=== PATIENT | male | born 1950 | race Caucasian/White ===

== ENCOUNTER → 2016-04-28 | Outpatient (CLI) | payer MEDICARE, OTHER | LOC: RAD 11:46 | DX: J20.8 Acute bronchitis due to other specified organisms (principal); R91.8 Other nonspecific abnormal finding of lung field; M46.84 Other specified inflammatory spondylopathies, thoracic region ==

== ENCOUNTER → 2016-05-02 | Outpatient (CLI) | payer MEDICARE, OTHER | LOC: LAB 10:28 | DX: J84.114 Acute interstitial pneumonitis (principal) ==

== ENCOUNTER → 2017-07-14 | Day surgery (SDC) | payer OTHER ==
[2014-05-31 20:30] VITALS: BP 170/68
== END ==
LOC: MSO 08:09
DX: Z12.11 Encounter for screening for malignant neoplasm of colon (principal); I10 Essential (primary) hypertension; E10.9 Type 1 diabetes mellitus without complications; Z79.4 Long term (current) use of insulin
CPT/HCPCS: G0121; 00812; J2704; J7030

== ENCOUNTER → 2018-06-09 | Outpatient (CLI) | payer MEDICARE, OTHER ==
[2014-05-31 20:30] VITALS: BP 170/68
== END ==
LOC: RAD 11:00
DX: M47.814 Spondylosis without myelopathy or radiculopathy, thoracic region (principal); R53.81 Other malaise; R09.89 Other specified symptoms and signs involving the circulatory and respiratory systems; R06.00 Dyspnea, unspecified; R06.02 Shortness of breath

== ENCOUNTER 2020-01-23 06:54 | Emergency (ER) | payer MEDICARE, OTHER ==
[2020-01-23] MEDS ORDERED: ZYLOPRIM 100MG100 MG PO (08:00)
[2020-01-23] MEDS ORDERED: GOOD SENSE ASPI81 M1 PO (08:01)
[2020-01-23] MEDS ORDERED: NOVOLOG 100U100 U/ML SQ (08:01)
[2020-01-23] MEDS ORDERED: LANTUS PEN100 U/ML SQ (08:01)
[2020-01-23 08:23] LABS: EOS # 0.1 (0.04-0.40); EOS % 1.2 % (0.0-4.0); HEMOGLOBIN 14.7 g/dL (13.5-18.0); LYMPH# 2.1 (1.50-4.00); MEAN CELL VOLUME 94 fl (78-100); MEAN CORPUSCULAR HEMOGLOBIN 33 pg (27-31); MEAN CORPUSCULAR HGB CONC 35 g/dL (33-37); MEAN PLATELET VOLUME 10.3 fl (7.4-10.4); MONO # 0.8 (0.20-0.80); NEU # 6.4 (1.40-6.50); PLATELET COUNT 231 K/mm3 (130-400); RED BLOOD COUNT 4.49 M/mm3 (4.20-5.60); RED CELL DISTRIBUTION WIDTH 11.6 % (11.5-14.5); WHITE BLOOD COUNT 9.3 K/mm3 (4.8-10.8)
[2020-01-23 08:25] LABS: ALBUMIN 3.9 g/dL (3.4-4.8); POTASSIUM 4.4 mmol/L (3.5-5.1); SODIUM 140 mmol/L (136-145)
[2020-01-23 08:26] LABS: CALCIUM 8.5 mg/dL (8.3-10.5)
[2020-01-23 08:27] LABS: GLUCOSE 191 mg/dL (75-110); TOTAL PROTEIN 6.3 g/dL (6.2-8.1)
[2020-01-23 08:28] LABS: CARBON DIOXIDE 27 mmol/L (23-31)
[2020-01-23 08:29] LABS: TOTAL BILIRUBIN 0.6 mg/dL (0.2-1.2)
[2020-01-23 08:32] LABS: AST-SGOT 17 U/L (5-34)
[2020-01-23 08:34] LABS: ALT/SGPT 15 U/L (0-55)
[2020-01-23 08:43] LABS: TROPONIN-I < 0.03 ng/mL (<0.030)
[2020-01-23 09:39] VITALS: BP 158/81
== END 2020-01-23 09:34 | disposition home or self-care (01) ==
LOC: ED 06:54
PROVIDERS: Nurse Practitioner
DX: S06.0X0A Concussion without loss of consciousness, initial encounter (principal); I10 Essential (primary) hypertension; E11.9 Type 2 diabetes mellitus without complications; Z79.4 Long term (current) use of insulin; Z79.82 Long term (current) use of aspirin; Z79.899 Other long term (current) drug therapy; W20.8XXA Other cause of strike by thrown, projected or falling object, initial encounter; Y99.0 Civilian activity done for income or pay

== ENCOUNTER 2020-10-28 21:25 | Emergency (ER) | payer OTHER, MEDICARE ==
[~2020-10-28 21:25] MED LIST: GOOD SENSE ASPI81 M1 PO; LANTUS PEN100 U/ML SQ; NOVOLOG 100U100 U/ML SQ; ZYLOPRIM 100MG100 MG PO
[2020-10-28 22:30] VITALS: BP 138/61
== END 2020-10-28 22:30 | disposition home or self-care (01) ==
LOC: ED 21:25
DX: S09.90XA Unspecified injury of head, initial encounter (principal); S01.01XA Laceration without foreign body of scalp, initial encounter; E11.9 Type 2 diabetes mellitus without complications; I10 Essential (primary) hypertension; Z79.4 Long term (current) use of insulin; W22.8XXA Striking against or struck by other objects, initial encounter